=== PATIENT | male | born 1955 | race Caucasian/White ===

== ENCOUNTER 2019-05-20 12:21 | Emergency (ER) | payer BC ==
[~2019-05-20] VITALS: Ht 180.3 cm; Wt 80.9 kg
[2019-05-20 12:26] VITALS: Ht 180.3 cm; Wt 80.9 kg
[2019-05-20] MEDS ORDERED: LOPRESSOR25 MG PO (12:28)
[2019-05-20] MEDS ORDERED: PRINIVIL20 MG PO (12:28)
[2019-05-20] MEDS ORDERED: METFORMIN HCL500 M1 PO (12:29)
[2019-05-20] MEDS ORDERED: PRAVACHOL40 MG PO (12:29)
[2019-05-20] MEDS ORDERED: NORVASC10 MG PO (12:30)
[2019-05-20] MEDS ORDERED: AUGMENTIN 875-11 TAB PO (15:23)
[2019-05-20 15:51] VITALS: BP 138/78
== END 2019-05-20 15:52 | disposition home or self-care (01) ==
LOC: D.ER 12:21
DX: S61.451A Open bite of right hand, initial encounter (principal); S51.851A Open bite of right forearm, initial encounter; W55.51XA Bitten by raccoon, initial encounter; Y93.89 Activity, other specified; Y92.89 Other specified places as the place of occurrence of the external cause